=== PATIENT | male | born 1995 | race Caucasian/White ===

== ENCOUNTER 2019-03-02 22:25 | Emergency (ER) | payer BC ==
[~2019-03-02] VITALS: Ht 170.2 cm; Wt 81.6 kg
[2019-03-02 22:35] VITALS: Ht 170.2 cm; Wt 81.6 kg
[2019-03-02 23:03] VITALS: BP 133/78
== END 2019-03-02 23:03 | disposition home or self-care (01) ==
LOC: ED 22:25
DX: H60.92 Unspecified otitis externa, left ear (principal)